=== PATIENT | male | born 1965 ===

== ENCOUNTER 2018-08-18 07:58 | Day surgery (SDC) | payer OTHER ==
[2018-08-18 08:28] VITALS: BMI 37.4
[2018-08-18 08:36] VITALS: PULSE 56; RESP 20; TEMP 98.6
--- NOTE | 2018-08-18 10:56 | CP.SDSHP ---
Same Day Surgery H & P - History Proposed Procedure: COLONSCOPY Pre-Op Diagnosis: SEE NOTES - Previous Medical/Surgical History Misc: Other Pain: 4.Moderate Pain - Allergies Allergies: Allergies Sulfa (Sulfonamide Antibiotics) Allergy (Verified 08/17/18 10:51) RASH pt does not know what happens when he takes sulfa he was told as a child he is allergic. - Physical Exam General Appearance: N Vital Signs: Vital Signs 08/18/18 08/18/18 08:29 08:42 Temperature 98.6 F Pulse Rate 56 L 56 L Respiratory 20 Rate Blood Pressure 120/75 O2 Sat by Pulse 97 Oximetry Mental Status: Alert & Oriented x3 Neuro: WNL Heart: WNL Lungs: Other GI: Other - {Optional Preform as Required} Breast: WNL Abdomen: Other Rectal: Other Integument: WNL : WNL Ortho: WNL ENT: WNL - Impression Pt. Evaluated Today:Candidate for Anesthesia & Procedure: Yes - Date & Time Time: 10:56 Short Stay Discharge - Short Stay Discharge Admitting Diagnosis/Reason for Visit: COLON SCREENING Disposition: HOME/ ROUTINE
[2018-08-18] MEDS ORDERED: Propofol 10 mg/ml Inj (20 ML) ONE (10:57)
[2018-08-18] MEDS ORDERED: Midazolam 2 MG/2 ML VIAL ONE (11:01)
[2018-08-18] MEDS ORDERED: Belladonna-Phenobarbital PO ONE (11:45)
[2018-08-18 11:55] VITALS: BP 126/79; O2SAT 98
== END 2018-08-18 11:57 | disposition home or self-care (01) ==
LOC: C.ENDO 07:58
PROVIDERS: ATTEND Specialist
DX: Z12.11 Encounter for screening for malignant neoplasm of colon (principal); D12.4 Benign neoplasm of descending colon; K64.0 First degree hemorrhoids
CPT/HCPCS: 45380; 88305; J2001; J2250; J2704

== ENCOUNTER 2018-09-22 07:46 | Day surgery (SDC) | payer OTHER ==
[2018-09-22] MEDS ORDERED: Lactated Ringer's 1,000 ML IV ONE (12:10)
[2018-09-22] MEDS ORDERED: Propofol 10 mg/ml Inj (20 ML) ONE (12:11)
[2018-09-22] MEDS ORDERED: Midazolam 2 MG/2 ML VIAL ONE (12:11)
--- NOTE | 2018-09-22 12:16 | CP.SDSHP ---
Same Day Surgery H & P - History Proposed Procedure: EGD Pre-Op Diagnosis: SEE NOTES - Previous Medical/Surgical History Cardiac: Hypertension Misc: Other Pain: 4.Moderate Pain - Allergies Allergies: Allergies Sulfa (Sulfonamide Antibiotics) Allergy (Verified 09/22/18 08:49) RASH pt does not know what happens when he takes sulfa he was told as a child he is allergic. - Physical Exam General Appearance: N Vital Signs: Vital Signs 09/22/18 08:54 Temperature 97 F L Pulse Rate 70 Respiratory 19 Rate Blood Pressure 159/52 H O2 Sat by Pulse 99 Oximetry Mental Status: Alert & Oriented x3 Neuro: WNL Heart: WNL Lungs: WNL GI: Other - {Optional Preform as Required} Breast: WNL Abdomen: Other Rectal: Other Integument: WNL : WNL Ortho: WNL ENT: WNL - Impression Pt. Evaluated Today:Candidate for Anesthesia & Procedure: Yes - Date & Time Time: 12:16 Short Stay Discharge - Short Stay Discharge Admitting Diagnosis/Reason for Visit: FUNCTIONAL DYSPEPSIA Disposition: HOME/ ROUTINE
[2018-09-22] MEDS ORDERED: Sucralfate 1 gm/10 ml Oral Susp UD PO ONE (12:35)
[2018-09-22 12:47] VITALS: RESP 18
[2018-09-22 13:31] VITALS: BP 127/72; PULSE 58; TEMP 98.6; O2SAT 98
== END 2018-09-22 13:30 | disposition home or self-care (01) ==
LOC: C.ENDO 07:46
PROVIDERS: ATTEND Specialist
DX: K21.0 Gastro-esophageal reflux disease with esophagitis (principal); K44.9 Diaphragmatic hernia without obstruction or gangrene
CPT/HCPCS: 43235; J2001; J2250; J2704; J3010; J7120